=== PATIENT | female | born 1965 | race Caucasian/White ===

== ENCOUNTER 2016-12-12 18:07 | Inpatient (IN) | payer MEDICARE ==
[~2016-12-12] VITALS: Ht 144.8 cm; Wt 111.9 kg
[~2016-12-12 18:07] MED LIST: AMLO10TA2 PO; FURO-93 PO; FURO10VI37 IV; INSU100V8 SQ; ISOS60TA36 PO; METO-93 PO; METO25TA91 PO; PRAV40TA PO
[2016-12-12 19:41] LABS: BLOOD UREA NITROGEN 103 mg/dL (7-18)
[2016-12-12 19:55] LABS: ASPARTATE AMINO TRANSFERASE 12 U/L (15-37)
[2016-12-12 20:20] LABS: DIFF TOTAL CELLS COUNTED 100 CELL DIFF
[2016-12-12 20:24] LABS: VERIFY COUNTS? YES
[2016-12-12 20:26] LABS: HYPOCHROMIA 2+; MICROCYTOSIS 2+
[2016-12-12 20:27] LABS: POLYCHROMASIA 1+
[2016-12-12 20:28] LABS: POIKILOCYTOSIS 1+
[2016-12-12] MEDS ORDERED: CEFTRIAXONE PMX 1GM/50ML 50 ML IV ONE (20:30)
[2016-12-12] MEDS ORDERED: PHARMACOKINETIC CONSULTATION MC ONE (21:00)
[2016-12-12] MEDS ORDERED: ERTAPENEM 1 GM in SODIUM CHLORIDE 0.9% 50 ML IV ONE (21:00)
[2016-12-12] MEDS ORDERED: VANCOMYCIN PER PHARMACY MC ONE (21:00)
[2016-12-12] MEDS ORDERED: VANCOMYCIN 2,200 MG in SODIUM CHLORIDE 0.9% 500 ML IV ONE (21:00)
[2016-12-12] MEDS ORDERED: PHARMACOKINETIC MONITORING MC PRN (21:00)
[2016-12-12] MEDS ORDERED: DOCUSATE 100 MG CAPSULE PO PRN (21:30)
[2016-12-12] MEDS ORDERED: ENALAPRILAT 1.25 MG/ML, 2ML IVPush PRN (21:30)
[2016-12-12] MEDS ORDERED: ONDANSETRON ODT 4 MG PO PRN (21:30)
[2016-12-12] MEDS ORDERED: hydrALAzine 20 MG/ML, 1ML IV PRN (21:30)
[2016-12-12] MEDS ORDERED: HYDROcodone/APAP 5/325 TABLET PO PRN (21:30)
[2016-12-12] MEDS ORDERED: ACETAMINOPHEN 325 MG TABLET PO PRN (21:30)
[2016-12-12] MEDS ORDERED: HEPARIN 5,000 UNITS/ML, 1ML SQ SCH (21:30)
[2016-12-12] MEDS ORDERED: HYDROcodone/APAP 5/325 TABLET ONE (22:05)
[2016-12-12 23:32] VITALS: BP 170/76
[2016-12-13] MEDS: FUROSEMIDE 40 MG/4 ML IV SCH ×3 (00:13→17:00)
[2016-12-13] MEDS ORDERED: DEXTROSE 4 GM TAB.CHEW PO PRN (01:00)
[2016-12-13] MEDS ORDERED: GLUCAGON 1 MG IM PRN (01:00)
[2016-12-13] MEDS: DEXTROSE 50%, 50ML SYRINGE IVPush PRN ×2 (01:30→21:44)
[2016-12-13 01:42] VITALS: BP 188/77
[2016-12-13 05:26] LABS: ASPARTATE AMINO TRANSFERASE 11 U/L (15-37)
[2016-12-13 05:30] LABS: BLOOD UREA NITROGEN 104 mg/dL (7-18)
[2016-12-13] MEDS: INSULIN DETEMIR 100 UNITS/ML, PEN SQ-INSULIN SCH (06:00)
[2016-12-13 06:35] VITALS: BP 180/74
[2016-12-13 06:38] LABS: DIFF TOTAL CELLS COUNTED 100 CELL DIFF
[2016-12-13] MEDS: METOPROLOL SUCCINATE 25 MG TAB.ER.24H PO SCH (06:50)
[2016-12-13] MEDS ORDERED: VANCOMYCIN PER PHARMACY MC PRN (07:00)
[2016-12-13] MEDS: INSULIN ASPART 100 UNITS/ML, PEN SQ-INSULIN SCH ×4 (07:00→21:00)
[2016-12-13 07:10] LABS: ANISOCYTOSIS 1+; HYPOCHROMIA 1+; MICROCYTOSIS 1+; POIKILOCYTOSIS 1+
[2016-12-13 07:11] LABS: ROULEAUX 1+
[2016-12-13 07:19] LABS: VERIFY COUNTS? YES
[2016-12-13] MEDS: SODIUM CHLORIDE FLUSH 10ML SYR IVF SCH ×2 (09:00→21:39)
[2016-12-13] MEDS: SODIUM BICARBONATE 650 MG TABLET PO SCH ×2 (09:58→21:00)
[2016-12-13] MEDS: ISOSORBIDE MONONITRATE ER 60 MG TABLET PO SCH (09:59)
[2016-12-13] MEDS ORDERED: LABETALOL 5MG/ML, 20ML IVPush PRN (11:00)
[2016-12-13 13:00] LABS: HCG UR OBC PASS
[2016-12-13] MEDS ORDERED: MIDAZOLAM 1 MG/ML, 2ML ONE (14:30)
[2016-12-13] MEDS ORDERED: FENTANYL PF 250 MCG/5ML ONE (14:30)
[2016-12-13] MEDS ORDERED: ONDANSETRON 2MG/ML, 2ML ONE (15:06)
[2016-12-13] MEDS ORDERED: FUROSEMIDE 20 MG/2 ML ONE (15:06)
[2016-12-13] MEDS ORDERED: LIDOCAINE 2% 100MG/5ML SYRINGE ONE (15:06)
[2016-12-13] MEDS ORDERED: SUCCINYLCHOLINE 20 MG/ML, 10ML ONE (15:06)
[2016-12-13] MEDS ORDERED: PROPOFOL 10 MG/ML, 50ML ONE (15:06)
[2016-12-13] MEDS ORDERED: ONDANSETRON 2MG/ML, 2ML IVPush PRN (16:00)
[2016-12-13] MEDS ORDERED: MIDAZOLAM 1 MG/ML, 2ML IV PRN (16:00)
[2016-12-13] MEDS ORDERED: HYDROcodone/APAP 7.5-325MG/15ML UDC PO PRN (16:00)
[2016-12-13] MEDS ORDERED: hydrALAzine 20 MG/ML, 1ML IV PRN (16:00)
[2016-12-13] MEDS ORDERED: PROMETHAZINE 25 MG/ML, 1ML IV PRN (16:00)
[2016-12-13] MEDS ORDERED: FENTANYL PF 100 MCG/2ML IV PRN (16:00)
[2016-12-13] MEDS ORDERED: OXYcodone 5 MG/5 ML ORAL.SOL UDC PO PRN (16:00)
[2016-12-13] MEDS ORDERED: MEPERIDINE/PF 25MG/0.5ML IVPush PRN (16:00)
[2016-12-13] MEDS ORDERED: LABETALOL 5MG/ML, 20ML IV PRN (16:00)
[2016-12-13] MEDS ORDERED: EPHEDRINE 50 MG/ML, 1ML IVPush PRN (16:00)
[2016-12-13] MEDS ORDERED: ACETAMINOPHEN 325 MG TABLET PO PRN (16:00)
[2016-12-13] MEDS ORDERED: PHARMACY MAY ADJ FOR RENAL FX MC SCH (18:30)
[2016-12-13] MEDS ORDERED: LIDOCAINE-MPF 1%, 2ML ENDO PRN (18:30)
[2016-12-13] MEDS: HYDROmorphone 1 MG/ML, 1ML IV PRN ×2 (19:33→23:47)
[2016-12-13] MEDS ORDERED: PROPOFOL 100 ML IV ONE (19:33)
[2016-12-13] MEDS: PROPOFOL 100 ML IV PRN ×2 (19:44→23:37)
[2016-12-13] MEDS ORDERED: ERTAPENEM 0.5 GM in SODIUM CHLORIDE 0.9% 50 ML IV SCH (21:00)
[2016-12-13] MEDS: ALBUTEROL SULFATE 2.5 MG/3 ML NPPB SCH (22:14)
[2016-12-14] MEDS: ALBUTEROL SULFATE 2.5 MG/3 ML NPPB SCH ×6 (02:48→20:00)
[2016-12-14] MEDS: INSULIN ASPART 100 UNITS/ML, PEN SQ-INSULIN SCH ×4 (03:00→21:54)
[2016-12-14] MEDS: PROPOFOL 100 ML IV PRN (03:02)
[2016-12-14] MEDS: DEXTROSE 50%, 50ML SYRINGE IVPush PRN (03:08)
[2016-12-14] MEDS: HYDROmorphone 1 MG/ML, 1ML IV PRN ×2 (03:12→09:37)
[2016-12-14 04:36] LABS: ABG COLLECTION SITE RIGHT RADIAL; COLLATERAL CIRCULATION TESTING NORMAL
[2016-12-14 04:48] LABS: ASPARTATE AMINO TRANSFERASE 13 U/L (15-37)
[2016-12-14 04:59] LABS: BLOOD UREA NITROGEN 104 mg/dL (7-18)
[2016-12-14] MEDS: METOPROLOL SUCCINATE 25 MG TAB.ER.24H PO SCH (05:47)
[2016-12-14] MEDS: INSULIN DETEMIR 100 UNITS/ML, PEN SQ-INSULIN SCH (05:48)
[2016-12-14] MEDS: SODIUM BICARBONATE 650 MG TABLET PO SCH ×2 (08:52→21:53)
[2016-12-14] MEDS: SODIUM CHLORIDE FLUSH 10ML SYR IVF SCH ×2 (08:52→21:53)
[2016-12-14] MEDS: ISOSORBIDE MONONITRATE ER 60 MG TABLET PO SCH (08:52)
[2016-12-14] MEDS: FUROSEMIDE 40 MG/4 ML IV SCH ×2 (08:52→17:00)
[2016-12-14] MEDS ORDERED: PHARMACOKINETIC MONITORING MC PRN (11:00)
[2016-12-14 13:10] LABS: HEP B SURF. AB < 3.1 mIU/mL (0.0-10.0)
[2016-12-14] MEDS ORDERED: ACETAMINOPHEN 325 MG TABLET PO PRN (18:00)
[2016-12-14] MEDS ORDERED: ISOSORBIDE MC SCH (18:30)
[2016-12-14] MEDS ORDERED: VANCOMYCIN PER PHARMACY MC PRN (18:30)
[2016-12-14] MEDS ORDERED: METOPROLOL MC SCH (18:30)
[2016-12-14] MEDS ORDERED: HYDROcodone/APAP 5/325 TABLET PO PRN (19:30)
[2016-12-14 19:55] VITALS: BP 158/76
[2016-12-14] MEDS: ALBUTEROL SULFATE 2.5 MG/3 ML NPPB PRN (21:45)
[2016-12-14] MEDS: HYDROcodone/APAP 5/325 TABLET NG PRN ×2 (21:52→22:35)
[2016-12-14] MEDS: ERTAPENEM 0.5 GM in SODIUM CHLORIDE 0.9% 50 ML IV SCH (21:52)
[2016-12-14 23:23] VITALS: BP 91/59
[2016-12-15] MEDS: INSULIN ASPART 100 UNITS/ML, PEN SQ-INSULIN SCH ×4 (03:00→23:32)
[2016-12-15] MEDS: DEXTROSE 50%, 50ML SYRINGE IVPush PRN ×2 (03:55→04:10)
[2016-12-15] MEDS ORDERED: DEXTROSE 4 GM TAB.CHEW PO PRN (04:00)
[2016-12-15] MEDS ORDERED: GLUCAGON 1 MG IM PRN (04:00)
[2016-12-15 04:54] LABS: BLOOD UREA NITROGEN 64 mg/dL (7-18)
[2016-12-15 05:20] LABS: DIFF TOTAL CELLS COUNTED 100 CELL DIFF
[2016-12-15 05:22] LABS: ANISOCYTOSIS 1+; POLYCHROMASIA 1+
[2016-12-15 05:23] LABS: OVALOCYTES 1+; POIKILOCYTOSIS 1+; VERIFY COUNTS? YES
[2016-12-15] MEDS: METOPROLOL SUCCINATE 25 MG TAB.ER.24H PO SCH (06:00)
[2016-12-15 06:12] VITALS: BP 93/74
[2016-12-15] MEDS: INSULIN DETEMIR 100 UNITS/ML, PEN SQ-INSULIN SCH (06:24)
[2016-12-15] MEDS ORDERED: SEVELAMER 800MG TABLET PO PRN (08:30)
[2016-12-15] MEDS: SEVELAMER 2.4 GM POWD.PACK PO SCH ×3 (08:30→18:10)
[2016-12-15] MEDS: SODIUM BICARBONATE 650 MG TABLET PO SCH ×3 (10:46→23:15)
[2016-12-15] MEDS: FUROSEMIDE 40 MG/4 ML IV SCH ×2 (10:46→18:09)
[2016-12-15] MEDS: ISOSORBIDE MONONITRATE ER 60 MG TABLET PO SCH (10:47)
[2016-12-15] MEDS: SODIUM CHLORIDE FLUSH 10ML SYR IVF SCH ×4 (10:49→23:09)
[2016-12-15 12:16] LABS: DIFF TOTAL CELLS COUNTED 100 CELL DIFF
[2016-12-15 12:18] LABS: VERIFY COUNTS? YES
[2016-12-15 12:19] LABS: ANISOCYTOSIS 1+; POLYCHROMASIA 1+
[2016-12-15] MEDS: CHOLECALCIFEROL 1,000 UNIT TABLET PO SCH (14:31)
[2016-12-15 15:15] VITALS: BP 157/76
[2016-12-15] MEDS ORDERED: VANCOMYCIN 2,200 MG in SODIUM CHLORIDE 0.9% 500 ML IV ONE (18:00)
[2016-12-15] MEDS: HYDROcodone/APAP 5/325 TABLET PO PRN (18:09)
[2016-12-15 19:55] VITALS: BP 141/61
[2016-12-15] MEDS: ERTAPENEM 0.5 GM in SODIUM CHLORIDE 0.9% 50 ML IV SCH (23:09)
[2016-12-16] MEDS: HYDROcodone/APAP 5/325 TABLET PO PRN (03:36)
[2016-12-16] MEDS: SODIUM BICARBONATE 650 MG TABLET PO SCH ×3 (03:36→21:36)
[2016-12-16 03:44] VITALS: BP 140/78
[2016-12-16 04:46] LABS: BLOOD UREA NITROGEN 56 mg/dL (7-18)
[2016-12-16 04:49] LABS: ASPARTATE AMINO TRANSFERASE 148 U/L (15-37)
[2016-12-16 06:06] LABS: DIFF TOTAL CELLS COUNTED 100 CELL DIFF
[2016-12-16 06:08] LABS: ANISOCYTOSIS 1+; POLYCHROMASIA 1+; VERIFY COUNTS? YES
[2016-12-16 06:09] LABS: MICROCYTOSIS 1+; OVALOCYTES 1+
[2016-12-16 06:10] LABS: HYPOCHROMIA 1+
[2016-12-16] MEDS: INSULIN DETEMIR 100 UNITS/ML, PEN SQ-INSULIN SCH (07:11)
[2016-12-16] MEDS: INSULIN ASPART 100 UNITS/ML, PEN SQ-INSULIN SCH ×4 (07:12→23:09)
[2016-12-16] MEDS: SEVELAMER 2.4 GM POWD.PACK PO SCH ×3 (08:00→17:00)
[2016-12-16 08:24] VITALS: BP 172/83
[2016-12-16] MEDS: ISOSORBIDE MONONITRATE ER 60 MG TABLET PO SCH (09:00)
[2016-12-16] MEDS: SODIUM CHLORIDE FLUSH 10ML SYR IVF SCH ×4 (09:00→21:36)
[2016-12-16] MEDS: CHOLECALCIFEROL 1,000 UNIT TABLET PO SCH (09:00)
[2016-12-16 09:44] LABS: DIFF TOTAL CELLS COUNTED 100 CELL DIFF
[2016-12-16 09:45] LABS: VERIFY COUNTS? YES
[2016-12-16 09:46] LABS: ANISOCYTOSIS 1+; HYPOCHROMIA 1+; OVALOCYTES 1+; POLYCHROMASIA 1+
[2016-12-16 09:47] LABS: LARGE PLATELETS 1+
[2016-12-16 11:07] VITALS: BP 144/82
[2016-12-16] MEDS: FUROSEMIDE 40 MG/4 ML IV SCH ×2 (11:09→17:00)
[2016-12-16] MEDS ORDERED: FENTANYL PF 250 MCG/5ML ONE (14:42)
[2016-12-16] MEDS ORDERED: METOPROLOL 1 MG/ML, 5ML IV PRN (15:30)
[2016-12-16] MEDS ORDERED: HYDROmorphone 1 MG/ML, 1ML IV PRN (15:30)
[2016-12-16] MEDS ORDERED: ALBUTEROL SULFATE 2.5 MG/3 ML NPPB PRN (15:30)
[2016-12-16] MEDS ORDERED: ONDANSETRON 2MG/ML, 2ML IVPush PRN (15:30)
[2016-12-16] MEDS ORDERED: LABETALOL 5MG/ML, 20ML IV PRN (15:30)
[2016-12-16] MEDS ORDERED: EPHEDRINE 50 MG/ML, 1ML IVPush PRN (15:30)
[2016-12-16] MEDS ORDERED: hydrALAzine 20 MG/ML, 1ML IV PRN (15:30)
[2016-12-16] MEDS ORDERED: OXYcodone 5 MG/5 ML ORAL.SOL UDC PO PRN (15:30)
[2016-12-16] MEDS ORDERED: ACETAMINOPHEN 325 MG TABLET PO PRN (15:30)
[2016-12-16] MEDS ORDERED: ONDANSETRON 2MG/ML, 2ML ONE (15:44)
[2016-12-16] MEDS ORDERED: SUCCINYLCHOLINE 20 MG/ML, 10ML ONE (15:44)
[2016-12-16] MEDS ORDERED: PROPOFOL 10 MG/ML, 20ML ONE (15:44)
[2016-12-16] MEDS ORDERED: OXYcodone 5 MG/5 ML ORAL.SOL UDC ONE (16:54)
[2016-12-16] MEDS ORDERED: FENTANYL PF 100 MCG/2ML ONE (17:00)
[2016-12-16] MEDS: FENTANYL PF 100 MCG/2ML IV PRN ×2 (17:04→17:15)
[2016-12-16] MEDS: ALBUTEROL SULFATE 2.5 MG/3 ML NPPB PRN (17:34)
[2016-12-16] MEDS: METOPROLOL SUCCINATE 25 MG TAB.ER.24H PO SCH (18:24)
[2016-12-16 20:14] VITALS: BP 134/75
[2016-12-16] MEDS: ERTAPENEM 0.5 GM in SODIUM CHLORIDE 0.9% 50 ML IV SCH (21:36)
[2016-12-16 23:35] VITALS: BP 143/84
[2016-12-17 03:15] VITALS: BP 165/81
[2016-12-17 06:13] LABS: ASPARTATE AMINO TRANSFERASE 163 U/L (15-37); BLOOD UREA NITROGEN 50 mg/dL (7-18)
[2016-12-17 06:45] VITALS: BP 127/66
[2016-12-17] MEDS: SODIUM CHLORIDE FLUSH 10ML SYR IVF SCH ×4 (09:00→21:51)
[2016-12-17] MEDS: CHOLECALCIFEROL 1,000 UNIT TABLET PO SCH (09:05)
[2016-12-17] MEDS: METOPROLOL SUCCINATE 25 MG TAB.ER.24H PO SCH (09:06)
[2016-12-17] MEDS: SODIUM BICARBONATE 650 MG TABLET PO SCH ×2 (09:07→21:51)
[2016-12-17] MEDS: INSULIN ASPART 100 UNITS/ML, PEN SQ-INSULIN SCH ×4 (09:07→22:55)
[2016-12-17] MEDS: SEVELAMER 2.4 GM POWD.PACK PO SCH ×3 (09:07→17:02)
[2016-12-17] MEDS: ISOSORBIDE MONONITRATE ER 60 MG TABLET PO SCH (09:07)
[2016-12-17] MEDS: FUROSEMIDE 40 MG/4 ML IV SCH ×2 (09:08→17:01)
[2016-12-17] MEDS: INSULIN DETEMIR 100 UNITS/ML, PEN SQ-INSULIN SCH (12:30)
[2016-12-17 12:34] VITALS: BP 124/81
[2016-12-17] MEDS: HYDROcodone/APAP 5/325 TABLET PO PRN (14:14)
[2016-12-17] MEDS ORDERED: AMPICILLIN 2 GM in SODIUM CHLORIDE 0.9% 100 ML IV SCH (16:30)
[2016-12-17] MEDS: AMPICILLIN/SULBACTAM 3 GM in SODIUM CHLORIDE 0.9% 100 ML IV SCH (17:01)
[2016-12-17 21:05] VITALS: BP 137/76
[2016-12-18 02:06] VITALS: BP 145/82
[2016-12-18 05:37] LABS: BLOOD UREA NITROGEN 66 mg/dL (7-18)
[2016-12-18] MEDS: AMPICILLIN/SULBACTAM 3 GM in SODIUM CHLORIDE 0.9% 100 ML IV SCH ×3 (05:45→17:14)
[2016-12-18 05:59] VITALS: BP 135/94
[2016-12-18 05:59] LABS: DIFF TOTAL CELLS COUNTED 100 CELL DIFF
[2016-12-18 06:01] LABS: ANISOCYTOSIS 1+; VERIFY COUNTS? YES
[2016-12-18 06:02] LABS: POIKILOCYTOSIS 1+; POLYCHROMASIA 1+
[2016-12-18 06:03] LABS: STOMATOCYTES 1+
[2016-12-18] MEDS: METOPROLOL SUCCINATE 25 MG TAB.ER.24H PO SCH (06:03)
[2016-12-18 06:04] LABS: LARGE PLATELETS 1+
[2016-12-18] MEDS: HYDROcodone/APAP 5/325 TABLET PO PRN (06:04)
[2016-12-18 07:40] VITALS: BP 133/78
[2016-12-18] MEDS: SEVELAMER 2.4 GM POWD.PACK PO SCH ×3 (08:00→16:31)
[2016-12-18] MEDS: SODIUM BICARBONATE 650 MG TABLET PO SCH ×2 (08:44→21:23)
[2016-12-18] MEDS: INSULIN ASPART 100 UNITS/ML, PEN SQ-INSULIN SCH ×4 (08:44→21:00)
[2016-12-18] MEDS: CHOLECALCIFEROL 1,000 UNIT TABLET PO SCH (08:44)
[2016-12-18] MEDS: ISOSORBIDE MONONITRATE ER 60 MG TABLET PO SCH (08:45)
[2016-12-18] MEDS: FUROSEMIDE 40 MG/4 ML IV SCH ×2 (08:45→16:41)
[2016-12-18] MEDS: SODIUM CHLORIDE FLUSH 10ML SYR IVF SCH ×4 (08:47→21:23)
[2016-12-18] MEDS: CINACALCET 30 MG TABLET PO SCH (10:00)
[2016-12-18] MEDS ORDERED: ROCURONIUM 10 MG/ML ONE (11:20)
[2016-12-18] MEDS ORDERED: PROPOFOL 10 MG/ML, 20ML ONE (11:20)
[2016-12-18] MEDS ORDERED: PHENYLEPHRINE 10 MG/ML ONE (11:20)
[2016-12-18] MEDS ORDERED: hydrALAzine 20 MG/ML, 1ML IV PRN (12:30)
[2016-12-18] MEDS ORDERED: HYDROmorphone 1 MG/ML, 1ML IV PRN (12:30)
[2016-12-18] MEDS ORDERED: ONDANSETRON 2MG/ML, 2ML IVPush PRN (12:30)
[2016-12-18] MEDS ORDERED: OXYcodone 5 MG/5 ML ORAL.SOL UDC PO PRN (12:30)
[2016-12-18] MEDS ORDERED: LABETALOL 5MG/ML, 20ML IV PRN (12:30)
[2016-12-18] MEDS ORDERED: MEPERIDINE/PF 25MG/0.5ML IVPush PRN (12:30)
[2016-12-18] MEDS ORDERED: FENTANYL PF 100 MCG/2ML ONE (12:33)
[2016-12-18] MEDS: FENTANYL PF 100 MCG/2ML IV PRN ×2 (12:35→12:57)
[2016-12-18] MEDS ORDERED: OXYcodone 5 MG/5 ML ORAL.SOL UDC ONE (12:46)
[2016-12-18 13:45] VITALS: BP 132/85
[2016-12-18 13:50] VITALS: BP 124/83
[2016-12-18 20:39] VITALS: BP 151/94
[2016-12-18] MEDS ORDERED: AMPICILLIN 2 GM in SODIUM CHLORIDE 0.9% 100 ML IV ONE (22:00)
[2016-12-19 01:38] VITALS: BP 164/72
[2016-12-19] MEDS: AMPICILLIN/SULBACTAM 3 GM in SODIUM CHLORIDE 0.9% 100 ML IV SCH ×2 (04:46→16:13)
[2016-12-19] MEDS: METOPROLOL SUCCINATE 25 MG TAB.ER.24H PO SCH (06:53)
[2016-12-19 07:47] LABS: ASPARTATE AMINO TRANSFERASE 22 U/L (15-37); BLOOD UREA NITROGEN 52 mg/dL (7-18)
[2016-12-19 08:05] VITALS: BP 131/59
[2016-12-19] MEDS: INSULIN ASPART 100 UNITS/ML, PEN SQ-INSULIN SCH ×4 (08:07→21:41)
[2016-12-19] MEDS ORDERED: SODIUM CHLORIDE 0.9%, 500ML IVBOLUS ONE (08:30)
[2016-12-19 08:37] LABS: DIFF TOTAL CELLS COUNTED 100 CELL DIFF
[2016-12-19 08:39] LABS: VERIFY COUNTS? YES
[2016-12-19 08:40] LABS: ANISOCYTOSIS 2+
[2016-12-19 08:41] LABS: HYPOCHROMIA 2+; POLYCHROMASIA 1+
[2016-12-19] MEDS: SODIUM CHLORIDE FLUSH 10ML SYR IVF SCH ×4 (09:23→21:00)
[2016-12-19] MEDS: FUROSEMIDE 40 MG/4 ML IV SCH ×2 (09:32→16:13)
[2016-12-19] MEDS: SEVELAMER 2.4 GM POWD.PACK PO SCH ×3 (09:47→16:13)
[2016-12-19] MEDS: SODIUM BICARBONATE 650 MG TABLET PO SCH ×2 (09:49→21:30)
[2016-12-19] MEDS: CINACALCET 30 MG TABLET PO SCH (09:50)
[2016-12-19] MEDS: CHOLECALCIFEROL 1,000 UNIT TABLET PO SCH (09:50)
[2016-12-19] MEDS: ISOSORBIDE MONONITRATE ER 60 MG TABLET PO SCH (09:51)
[2016-12-19 13:24] VITALS: BP 123/62
[2016-12-19] MEDS: HYDROcodone/APAP 5/325 TABLET PO PRN (15:34)
[2016-12-19] MEDS ORDERED: LACTULOSE 20 GM/30 ML UDC PO PRN (18:30)
[2016-12-19] MEDS ORDERED: POLYETHYLENE GLYCOL 17 GM PACKET PO PRN (18:30)
[2016-12-19] MEDS ORDERED: MAGNESIUM CITRATE 300ML ORAL SOL PO PRN ×2 (18:30)
[2016-12-19] MEDS ORDERED: BISACODYL 10 MG SUPP PR PRN ×2 (18:30)
[2016-12-19 19:40] VITALS: BP 137/38
[2016-12-19] MEDS: SENNA/DOCUSATE TABLET PO SCH (21:30)
[2016-12-20 01:18] VITALS: BP 140/86
[2016-12-20] MEDS: AMPICILLIN/SULBACTAM 3 GM in SODIUM CHLORIDE 0.9% 100 ML IV SCH (04:19)
[2016-12-20 06:40] LABS: BLOOD UREA NITROGEN 68 mg/dL (7-18)
[2016-12-20] MEDS: METOPROLOL SUCCINATE 25 MG TAB.ER.24H PO SCH (06:47)
[2016-12-20 07:00] VITALS: BP 152/62
[2016-12-20 07:23] LABS: DIFF TOTAL CELLS COUNTED 100 CELL DIFF
[2016-12-20 07:25] LABS: ANISOCYTOSIS 1+; HYPOCHROMIA 1+; POIKILOCYTOSIS 1+; VERIFY COUNTS? YES
[2016-12-20] MEDS: INSULIN ASPART 100 UNITS/ML, PEN SQ-INSULIN SCH ×4 (07:58→21:35)
[2016-12-20] MEDS: INSULIN DETEMIR 100 UNITS/ML, PEN SQ-INSULIN SCH (07:58)
[2016-12-20] MEDS: CINACALCET 30 MG TABLET PO SCH (09:13)
[2016-12-20] MEDS: SEVELAMER 2.4 GM POWD.PACK PO SCH ×3 (09:13→17:38)
[2016-12-20] MEDS: ISOSORBIDE MONONITRATE ER 60 MG TABLET PO SCH (09:13)
[2016-12-20] MEDS: SODIUM BICARBONATE 650 MG TABLET PO SCH ×2 (09:13→21:37)
[2016-12-20] MEDS: DOCUSATE 100 MG CAPSULE PO SCH (09:13)
[2016-12-20] MEDS: SODIUM CHLORIDE FLUSH 10ML SYR IVF SCH ×4 (09:13→21:37)
[2016-12-20] MEDS: CHOLECALCIFEROL 1,000 UNIT TABLET PO SCH (09:13)
[2016-12-20] MEDS ORDERED: morphine SULFATE 10 MG/ML, 1ML IVPush ONE (09:30)
[2016-12-20] MEDS: FUROSEMIDE 40 MG/4 ML IV SCH ×2 (09:34→17:38)
[2016-12-20] MEDS: HYDROcodone/APAP 5/325 TABLET PO PRN ×2 (09:35→14:59)
[2016-12-20] MEDS: MORPHINE SULFATE 4 MG/ML, 1ML IVPush PRN (09:35)
[2016-12-20 14:11] VITALS: BP 187/90
[2016-12-20] MEDS: HEPARIN 5,000 UNITS/ML, 1ML SQ SCH (14:59)
[2016-12-20] MEDS ORDERED: LIDOCAINE 1%, 20ML ONE (14:59)
[2016-12-20] MEDS ORDERED: MIDAZOLAM 1 MG/ML, 5ML ONE (15:02)
[2016-12-20] MEDS ORDERED: NALOXONE 1 MG/ML, 2ML ONE (15:02)
[2016-12-20] MEDS ORDERED: FENTANYL PF 100 MCG/2ML ONE (15:02)
[2016-12-20] MEDS ORDERED: FLUMAZENIL 0.1 MG/1 ML, 5ML ONE (15:03)
[2016-12-20 15:06] VITALS: BP 139/66
[2016-12-20] MEDS: AMPICILLIN 2 GM in SODIUM CHLORIDE 0.9% 100 ML IV SCH (17:04)
[2016-12-20] MEDS ORDERED: SODIUM CHLORIDE FLUSH 10ML SYR IVF PRN (18:00)
[2016-12-20 20:00] VITALS: BP 139/74
[2016-12-20] MEDS: SENNA/DOCUSATE TABLET PO SCH (21:37)
[2016-12-21 02:50] VITALS: BP 158/93
[2016-12-21] MEDS: HEPARIN 5,000 UNITS/ML, 1ML SQ SCH ×2 (03:00→14:17)
[2016-12-21] MEDS: METOPROLOL SUCCINATE 25 MG TAB.ER.24H PO SCH (06:13)
[2016-12-21 06:52] LABS: ASPARTATE AMINO TRANSFERASE 14 U/L (15-37); BLOOD UREA NITROGEN 78 mg/dL (7-18)
[2016-12-21] MEDS: INSULIN ASPART 100 UNITS/ML, PEN SQ-INSULIN SCH ×4 (07:32→21:52)
[2016-12-21] MEDS: INSULIN DETEMIR 100 UNITS/ML, PEN SQ-INSULIN SCH (07:33)
[2016-12-21 07:59] LABS: DIFF TOTAL CELLS COUNTED 100 CELL DIFF
[2016-12-21 08:01] LABS: VERIFY COUNTS? YES
[2016-12-21 08:02] LABS: ANISOCYTOSIS 1+; LARGE PLATELETS 1+; POIKILOCYTOSIS 1+; POLYCHROMASIA 1+
[2016-12-21] MEDS: SODIUM CHLORIDE FLUSH 10ML SYR IVF SCH ×4 (08:23→21:45)
[2016-12-21 08:27] VITALS: BP 168/72
[2016-12-21] MEDS: SEVELAMER 2.4 GM POWD.PACK PO SCH ×3 (09:43→17:57)
[2016-12-21] MEDS: FUROSEMIDE 40 MG/4 ML IV SCH ×2 (09:43→17:57)
[2016-12-21] MEDS: SODIUM BICARBONATE 650 MG TABLET PO SCH (09:44)
[2016-12-21] MEDS: CINACALCET 30 MG TABLET PO SCH (09:44)
[2016-12-21] MEDS: ISOSORBIDE MONONITRATE ER 60 MG TABLET PO SCH (09:44)
[2016-12-21] MEDS: CHOLECALCIFEROL 1,000 UNIT TABLET PO SCH (09:45)
[2016-12-21] MEDS: DOCUSATE 100 MG CAPSULE PO SCH (09:45)
[2016-12-21] MEDS: AMPICILLIN/SULBACTAM 3 GM in SODIUM CHLORIDE 0.9% 100 ML IV SCH (09:45)
[2016-12-21 14:12] VITALS: BP 156/67
[2016-12-21] MEDS: HYDROcodone/APAP 5/325 TABLET PO PRN ×2 (14:17→21:46)
[2016-12-21 20:26] VITALS: BP 179/81
[2016-12-21] MEDS ORDERED: AMPICILLIN 2 GM in SODIUM CHLORIDE 0.9% 100 ML IV ONE (22:00)
[2016-12-22 02:01] VITALS: BP 178/83
[2016-12-22] MEDS: HEPARIN 5,000 UNITS/ML, 1ML SQ SCH ×2 (02:49→15:28)
[2016-12-22] MEDS: METOPROLOL SUCCINATE 25 MG TAB.ER.24H PO SCH (06:13)
[2016-12-22] MEDS: INSULIN DETEMIR 100 UNITS/ML, PEN SQ-INSULIN SCH (06:14)
[2016-12-22] MEDS: INSULIN ASPART 100 UNITS/ML, PEN SQ-INSULIN SCH ×4 (06:14→20:54)
[2016-12-22 08:47] LABS: ASPARTATE AMINO TRANSFERASE 9 U/L (15-37); BLOOD UREA NITROGEN 58 mg/dL (7-18)
[2016-12-22 08:56] VITALS: BP 137/63
[2016-12-22 09:13] LABS: DIFF TOTAL CELLS COUNTED 100 CELL DIFF
[2016-12-22 09:14] LABS: ANISOCYTOSIS 1+
[2016-12-22 09:15] LABS: POLYCHROMASIA 1+
[2016-12-22 09:16] LABS: VERIFY COUNTS? YES
[2016-12-22] MEDS: SEVELAMER 2.4 GM POWD.PACK PO SCH ×3 (10:53→18:14)
[2016-12-22] MEDS: SODIUM CHLORIDE FLUSH 10ML SYR IVF SCH ×4 (10:53→20:49)
[2016-12-22] MEDS: FUROSEMIDE 40 MG/4 ML IV SCH ×2 (10:59→18:14)
[2016-12-22] MEDS: AMPICILLIN/SULBACTAM 3 GM in SODIUM CHLORIDE 0.9% 100 ML IV SCH (10:59)
[2016-12-22] MEDS ORDERED: POLYETHYLENE GLYCOL 17 GM PACKET PO PRN (11:00)
[2016-12-22] MEDS: DOCUSATE 100 MG CAPSULE PO SCH (11:00)
[2016-12-22] MEDS: ISOSORBIDE MONONITRATE ER 60 MG TABLET PO SCH (11:00)
[2016-12-22] MEDS: LISINOPRIL 5 MG TABLET PO SCH (11:00)
[2016-12-22] MEDS: CINACALCET 30 MG TABLET PO SCH (11:01)
[2016-12-22] MEDS: CHOLECALCIFEROL 1,000 UNIT TABLET PO SCH (11:01)
[2016-12-22 14:24] VITALS: BP 144/74
[2016-12-22] MEDS: HYDROcodone/APAP 5/325 TABLET PO PRN (18:22)
[2016-12-22 20:00] VITALS: BP 156/75
[2016-12-23 00:59] VITALS: BP 167/81
[2016-12-23] MEDS: HEPARIN 5,000 UNITS/ML, 1ML SQ SCH ×2 (02:04→14:27)
[2016-12-23] MEDS: METOPROLOL SUCCINATE 25 MG TAB.ER.24H PO SCH (05:45)
[2016-12-23] MEDS: INSULIN DETEMIR 100 UNITS/ML, PEN SQ-INSULIN SCH (05:52)
[2016-12-23 06:15] LABS: BLOOD UREA NITROGEN 69 mg/dL (7-18)
[2016-12-23 06:25] LABS: ASPARTATE AMINO TRANSFERASE 11 U/L (15-37)
[2016-12-23] MEDS: INSULIN ASPART 100 UNITS/ML, PEN SQ-INSULIN SCH ×4 (07:00→21:51)
[2016-12-23] MEDS: SEVELAMER 2.4 GM POWD.PACK PO SCH ×3 (08:00→17:55)
[2016-12-23 08:45] VITALS: BP 172/73
[2016-12-23] MEDS: DOCUSATE 100 MG CAPSULE PO SCH ×2 (09:00→10:31)
[2016-12-23] MEDS: SODIUM CHLORIDE FLUSH 10ML SYR IVF SCH ×4 (09:00→21:00)
[2016-12-23] MEDS: CHOLECALCIFEROL 1,000 UNIT TABLET PO SCH (10:31)
[2016-12-23] MEDS: AMPICILLIN/SULBACTAM 3 GM in SODIUM CHLORIDE 0.9% 100 ML IV SCH (10:31)
[2016-12-23] MEDS: FUROSEMIDE 40 MG/4 ML IV SCH ×2 (10:31→17:55)
[2016-12-23] MEDS: CINACALCET 30 MG TABLET PO SCH (10:32)
[2016-12-23] MEDS: ISOSORBIDE MONONITRATE ER 60 MG TABLET PO SCH (10:32)
[2016-12-23] MEDS: LISINOPRIL 5 MG TABLET PO SCH (10:32)
[2016-12-23] MEDS: MORPHINE SULFATE 4 MG/ML, 1ML IVPush PRN (10:53)
[2016-12-23] MEDS: HYDROcodone/APAP 5/325 TABLET PO PRN (11:59)
[2016-12-23 14:34] VITALS: BP 172/87
[2016-12-23] MEDS: AMPICILLIN 2 GM in SODIUM CHLORIDE 0.9% 100 ML IV SCH (17:55)
[2016-12-23 18:55] VITALS: BP 150/80
[2016-12-24 04:35] LABS: BLOOD UREA NITROGEN 46 mg/dL (7-18)
[2016-12-24 04:38] LABS: ASPARTATE AMINO TRANSFERASE 12 U/L (15-37)
[2016-12-24 05:20] VITALS: BP 188/71
[2016-12-24] MEDS: HEPARIN 5,000 UNITS/ML, 1ML SQ SCH ×2 (06:03→17:39)
[2016-12-24] MEDS: MORPHINE SULFATE 4 MG/ML, 1ML IVPush PRN ×2 (06:04→11:21)
[2016-12-24] MEDS: INSULIN DETEMIR 100 UNITS/ML, PEN SQ-INSULIN SCH (06:06)
[2016-12-24] MEDS: METOPROLOL SUCCINATE 25 MG TAB.ER.24H PO SCH (06:06)
[2016-12-24 06:48] VITALS: BP 180/82
[2016-12-24] MEDS: INSULIN ASPART 100 UNITS/ML, PEN SQ-INSULIN SCH ×4 (07:00→21:00)
[2016-12-24] MEDS: SEVELAMER 2.4 GM POWD.PACK PO SCH ×3 (08:00→17:00)
[2016-12-24] MEDS ORDERED: LISINOPRIL 10 MG TABLET PO SCH (09:00)
[2016-12-24] MEDS: CINACALCET 30 MG TABLET PO SCH (09:15)
[2016-12-24] MEDS: DOCUSATE 100 MG CAPSULE PO SCH (09:15)
[2016-12-24] MEDS: CHOLECALCIFEROL 1,000 UNIT TABLET PO SCH (09:15)
[2016-12-24] MEDS: FUROSEMIDE 40 MG/4 ML IV SCH ×2 (09:15→17:38)
[2016-12-24] MEDS: LISINOPRIL 10 MG TABLET PO SCH ×2 (09:15→23:00)
[2016-12-24] MEDS: SODIUM CHLORIDE FLUSH 10ML SYR IVF SCH ×4 (09:15→23:01)
[2016-12-24] MEDS: ISOSORBIDE MONONITRATE ER 60 MG TABLET PO SCH (09:15)
[2016-12-24] MEDS: AMPICILLIN/SULBACTAM 3 GM in SODIUM CHLORIDE 0.9% 100 ML IV SCH (09:15)
[2016-12-24] MEDS ORDERED: ARANESP 100 MCG/ML **ESRD SQ SCH (15:00)
[2016-12-24 17:46] VITALS: BP 168/68
[2016-12-24 20:00] VITALS: BP 132/78
[2016-12-24] MEDS ORDERED: AMPICILLIN 2 GM in SODIUM CHLORIDE 0.9% 100 ML IV ONE (22:00)
[2016-12-24] MEDS: HYDROcodone/APAP 5/325 TABLET PO PRN (22:58)
[2016-12-24 23:14] VITALS: BP 123/65
[2016-12-25 01:33] VITALS: BP 196/75
[2016-12-25] MEDS ORDERED: hydrALAzine 20 MG/ML, 1ML IV PRN (03:00)
[2016-12-25 04:29] LABS: ASPARTATE AMINO TRANSFERASE 14 U/L (15-37); BLOOD UREA NITROGEN 33 mg/dL (7-18)
[2016-12-25 05:11] VITALS: BP 130/56
[2016-12-25] MEDS: HEPARIN 5,000 UNITS/ML, 1ML SQ SCH ×2 (06:18→18:06)
[2016-12-25] MEDS: METOPROLOL SUCCINATE 25 MG TAB.ER.24H PO SCH (06:19)
[2016-12-25] MEDS: HYDROcodone/APAP 5/325 TABLET PO PRN ×2 (06:19→14:37)
[2016-12-25] MEDS: INSULIN DETEMIR 100 UNITS/ML, PEN SQ-INSULIN SCH (06:24)
[2016-12-25 08:51] VITALS: BP 143/73
[2016-12-25] MEDS: LISINOPRIL 20 MG TABLET PO SCH ×2 (08:52→20:23)
[2016-12-25] MEDS: SEVELAMER 2.4 GM POWD.PACK PO SCH ×3 (08:52→18:06)
[2016-12-25] MEDS: ISOSORBIDE MONONITRATE ER 60 MG TABLET PO SCH (08:52)
[2016-12-25] MEDS: CHOLECALCIFEROL 1,000 UNIT TABLET PO SCH (08:52)
[2016-12-25] MEDS: FUROSEMIDE 40 MG/4 ML IV SCH ×2 (08:52→18:06)
[2016-12-25] MEDS: CINACALCET 30 MG TABLET PO SCH (08:53)
[2016-12-25] MEDS: DOCUSATE 100 MG CAPSULE PO SCH (08:53)
[2016-12-25] MEDS: INSULIN ASPART 100 UNITS/ML, PEN SQ-INSULIN SCH ×4 (08:53→20:22)
[2016-12-25] MEDS: SODIUM CHLORIDE FLUSH 10ML SYR IVF SCH (08:53)
[2016-12-25] MEDS: AMPICILLIN/SULBACTAM 3 GM in SODIUM CHLORIDE 0.9% 100 ML IV SCH (09:03)
[2016-12-25 10:20] VITALS: BP 143/76
[2016-12-25] MEDS: MORPHINE SULFATE 4 MG/ML, 1ML IVPush PRN (13:00)
[2016-12-25 13:21] VITALS: BP 130/55
[2016-12-25 19:38] VITALS: BP 156/80
[2016-12-25] MEDS: CHOLESTYRAMINE 4GM PACKET PO SCH (21:38)
[2016-12-26 00:18] VITALS: BP 151/77
[2016-12-26] MEDS: METOPROLOL SUCCINATE 25 MG TAB.ER.24H PO SCH (05:50)
[2016-12-26] MEDS: HEPARIN 5,000 UNITS/ML, 1ML SQ SCH ×2 (05:59→18:13)
[2016-12-26] MEDS: INSULIN DETEMIR 100 UNITS/ML, PEN SQ-INSULIN SCH (06:00)
[2016-12-26 06:21] LABS: BLOOD UREA NITROGEN 49 mg/dL (7-18)
[2016-12-26 06:26] LABS: ASPARTATE AMINO TRANSFERASE 8 U/L (15-37)
[2016-12-26 06:57] VITALS: BP 157/72
[2016-12-26 07:00] LABS: DIFF TOTAL CELLS COUNTED 100 CELL DIFF
[2016-12-26] MEDS: INSULIN ASPART 100 UNITS/ML, PEN SQ-INSULIN SCH ×4 (07:00→21:54)
[2016-12-26] MEDS ORDERED: PROTAMINE SULFATE 10 MG/ML, 5ML ONE (07:15)
[2016-12-26] MEDS ORDERED: BUPIVACAINE/PF 0.5% ONE (07:15)
[2016-12-26] MEDS ORDERED: HEPARIN 1,000 UNITS/ML, 10ML ONE (07:15)
[2016-12-26 07:21] LABS: VERIFY COUNTS? YES
[2016-12-26 07:22] LABS: ANISOCYTOSIS 1+; HYPOCHROMIA 1+; MICROCYTOSIS 1+
[2016-12-26] MEDS: FUROSEMIDE 40 MG/4 ML IV SCH ×2 (07:30→18:13)
[2016-12-26] MEDS: SEVELAMER 2.4 GM POWD.PACK PO SCH ×3 (08:00→17:00)
[2016-12-26] MEDS: DOCUSATE 100 MG CAPSULE PO SCH (08:50)
[2016-12-26] MEDS: CHOLECALCIFEROL 1,000 UNIT TABLET PO SCH (08:51)
[2016-12-26] MEDS: ISOSORBIDE MONONITRATE ER 60 MG TABLET PO SCH (08:51)
[2016-12-26] MEDS: CHOLESTYRAMINE 4GM PACKET PO SCH ×3 (08:51→21:00)
[2016-12-26] MEDS: CINACALCET 30 MG TABLET PO SCH (08:51)
[2016-12-26] MEDS: LISINOPRIL 20 MG TABLET PO SCH ×2 (08:51→21:35)
[2016-12-26] MEDS: AMPICILLIN/SULBACTAM 3 GM in SODIUM CHLORIDE 0.9% 100 ML IV SCH (09:21)
[2016-12-26] MEDS: HYDROcodone/APAP 5/325 TABLET PO PRN ×3 (11:53→22:14)
[2016-12-26 12:30] VITALS: BP 146/61
[2016-12-26] MEDS ORDERED: AMPICILLIN 2 GM in SODIUM CHLORIDE 0.9% 100 ML IV SCH (18:00)
[2016-12-26 19:47] VITALS: BP 123/60
[2016-12-27 03:33] VITALS: BP 153/74
[2016-12-27] MEDS: HYDROcodone/APAP 5/325 TABLET PO PRN ×2 (04:00→10:13)
[2016-12-27 04:27] LABS: ASPARTATE AMINO TRANSFERASE 10 U/L (15-37); BLOOD UREA NITROGEN 39 mg/dL (7-18)
[2016-12-27] MEDS: METOPROLOL SUCCINATE 25 MG TAB.ER.24H PO SCH (06:31)
[2016-12-27] MEDS: HEPARIN 5,000 UNITS/ML, 1ML SQ SCH (06:32)
[2016-12-27] MEDS: INSULIN DETEMIR 100 UNITS/ML, PEN SQ-INSULIN SCH (06:33)
[2016-12-27] MEDS: INSULIN ASPART 100 UNITS/ML, PEN SQ-INSULIN SCH (07:00)
[2016-12-27 08:18] VITALS: BP 151/54
[2016-12-27] MEDS: CHOLESTYRAMINE 4GM PACKET PO SCH (09:00)
[2016-12-27] MEDS: DOCUSATE 100 MG CAPSULE PO SCH (09:00)
[2016-12-27] MEDS: FUROSEMIDE 40 MG/4 ML IV SCH (09:32)
[2016-12-27] MEDS: CINACALCET 30 MG TABLET PO SCH (09:33)
[2016-12-27] MEDS: LISINOPRIL 20 MG TABLET PO SCH (09:33)
[2016-12-27] MEDS: SEVELAMER 2.4 GM POWD.PACK PO SCH (09:33)
[2016-12-27] MEDS: ISOSORBIDE MONONITRATE ER 60 MG TABLET PO SCH (09:33)
[2016-12-27] MEDS: AMPICILLIN/SULBACTAM 3 GM in SODIUM CHLORIDE 0.9% 100 ML IV SCH (09:34)
[2016-12-27] MEDS: CHOLECALCIFEROL 1,000 UNIT TABLET PO SCH (09:34)
[2016-12-27] MEDS ORDERED: METO25TA91 PO (11:31)
[2016-12-27] MEDS ORDERED: ACET325T14 PO (11:31)
[2016-12-27] MEDS ORDERED: Darbepoetin Alfa In Polysorbat SQ (11:31)
[2016-12-27] MEDS ORDERED: SEVE800T PO (11:31)
[2016-12-27] MEDS ORDERED: ISOS60TA36 PO (11:31)
[2016-12-27] MEDS ORDERED: CHOL10003 PO (11:31)
[2016-12-27] MEDS ORDERED: HYDR-3240 PO (11:31)
[2016-12-27] MEDS ORDERED: CINA30TA PO (11:31)
[2016-12-27] MEDS ORDERED: INSU100I18 SQ-INSULIN (11:31)
[2016-12-27] MEDS ORDERED: FURO10VI37 IV (11:31)
[2016-12-27] MEDS ORDERED: BISA10SU65 PR (11:31)
[2016-12-27] MEDS ORDERED: CHOL4PAC2 PO (11:31)
[2016-12-27] MEDS ORDERED: Lactulose PO (11:31)
[2016-12-27] MEDS ORDERED: SEVE2.4P PO (11:31)
[2016-12-27] MEDS ORDERED: INSU100I28 SQ-INSULIN (11:31)
== END 2016-12-27 12:10 | DRG 853 ==
LOC: ED 21:10 → EDIP 21:11 → ED 21:17 → 4NOR 23:10 → CCU 12-13 16:55 → 4NOR 12-14 18:48 → 4WST 12-24 17:58
PROVIDERS: ADMIT Family Medicine; ATTEND Family Medicine
PROC: 5A1935Z Respiratory Ventilation, Less than 24 Consecutive Hours (ICD-10-PCS; 2016-12-13)
PROC: 0BH17EZ Insertion of Endotracheal Airway into Trachea, Via Natural or Artificial Opening (ICD-10-PCS; 2016-12-13)
PROC: 0T9B70Z Drainage of Bladder with Drainage Device, Via Natural or Artificial Opening (ICD-10-PCS; 2016-12-13)
PROC: 30233N1 Transfusion of Nonautologous Red Blood Cells into Peripheral Vein, Percutaneous Approach (ICD-10-PCS; 2016-12-13)
PROC: 0JB80ZZ Excision of Abdomen Subcutaneous Tissue and Fascia, Open Approach (ICD-10-PCS; principal; 2016-12-13 14:00)
PROC: B543ZZA Ultrasonography of Right Jugular Veins, Guidance (ICD-10-PCS; 2016-12-14)
PROC: 02HV33Z Insertion of Infusion Device into Superior Vena Cava, Percutaneous Approach (ICD-10-PCS; 2016-12-14)
PROC: 5A1D60Z (ICD-10-PCS; 2016-12-14)
PROC: 0JB80ZZ Excision of Abdomen Subcutaneous Tissue and Fascia, Open Approach (ICD-10-PCS; 2016-12-16)
PROC: 0JBQ0ZZ Excision of Right Foot Subcutaneous Tissue and Fascia, Open Approach (ICD-10-PCS; 2016-12-16)
PROC: 0JB80ZZ Excision of Abdomen Subcutaneous Tissue and Fascia, Open Approach (ICD-10-PCS; 2016-12-18)
PROC: 02HV33Z Insertion of Infusion Device into Superior Vena Cava, Percutaneous Approach (ICD-10-PCS; 2016-12-20)
PROC: B548ZZA Ultrasonography of Superior Vena Cava, Guidance (ICD-10-PCS; 2016-12-20)
PROC: 0JH63XZ Insertion of Tunneled Vascular Access Device into Chest Subcutaneous Tissue and Fascia, Percutaneous Approach (ICD-10-PCS; 2016-12-20)
PROC: B5131ZA Fluoroscopy of Right Jugular Veins using Low Osmolar Contrast, Guidance (ICD-10-PCS; 2016-12-20)
PROC: B543ZZA Ultrasonography of Right Jugular Veins, Guidance (ICD-10-PCS; 2016-12-20)
PROC: 02HV33Z Insertion of Infusion Device into Superior Vena Cava, Percutaneous Approach (ICD-10-PCS; 2016-12-20)
DX: A41.9 Sepsis, unspecified organism (principal); J96.20 Acute and chronic respiratory failure, unspecified whether with hypoxia or hypercapnia; N18.6 End stage renal disease; N17.9 Acute kidney failure, unspecified; E87.2 Acidosis; L03.311 Cellulitis of abdominal wall; Z68.43 Body mass index [BMI] 50.0-59.9, adult; E66.2 Morbid (severe) obesity with alveolar hypoventilation; I13.2 Hypertensive heart and chronic kidney disease with heart failure and with stage 5 chronic kidney disease, or end stage renal disease; N04.9 Nephrotic syndrome with unspecified morphologic changes; E46 Unspecified protein-calorie malnutrition; Z99.81 Dependence on supplemental oxygen; R65.20 Severe sepsis without septic shock; D63.1 Anemia in chronic kidney disease; E11.22 Type 2 diabetes mellitus with diabetic chronic kidney disease; E11.621 Type 2 diabetes mellitus with foot ulcer; E11.65 Type 2 diabetes mellitus with hyperglycemia; E78.5 Hyperlipidemia, unspecified; E83.59 Other disorders of calcium metabolism; I27.2 Other secondary pulmonary hypertension; I50.9 Heart failure, unspecified; J44.9 Chronic obstructive pulmonary disease, unspecified; J45.909 Unspecified asthma, uncomplicated; K42.9 Umbilical hernia without obstruction or gangrene; K43.9 Ventral hernia without obstruction or gangrene; B95.2 Enterococcus as the cause of diseases classified elsewhere; B96.89 Other specified bacterial agents as the cause of diseases classified elsewhere; B96.4 Proteus (mirabilis) (morganii) as the cause of diseases classified elsewhere; M79.3 Panniculitis, unspecified; K59.00 Constipation, unspecified; L97.519 Non-pressure chronic ulcer of other part of right foot with unspecified severity; Z79.4 Long term (current) use of insulin; Z82.49 Family history of ischemic heart disease and other diseases of the circulatory system; Z83.3 Family history of diabetes mellitus; Z86.14 Personal history of Methicillin resistant Staphylococcus aureus infection; Z91.19 Patient's noncompliance with other medical treatment and regimen; Z99.2 Dependence on renal dialysis
CPT/HCPCS: 36415; 36556; 36558; 36569; 36600; 71010; 74176; 76770; 76937; 77001; 80048; 80053; 80069; 80202; 81001; 81025; 82306; 82570; 82803; 82962; 83605; 83735; 83880; 83935; 83970; 84100; 84145; 84156; 84436; 84443; 84478; 85025; 85610; 85651; 85730; 86140; 86480; 86704; 86706; 86850; 86900; 86923; 87040; 87070; 87075; 87077; 87081; 87086; 87176; 87186; 87205; 87324; 87340; 93005; 94002; 94003; 94150; 94640; 96374; J0290; J0295; J0882; J1170; J1335; J1644; J1815; J1940; J2250; J2405; J2704; J2720; J3010; J3370; J3490; J7613; C1750; C1751; G0365; J0330; J0360; J1610; J1642; J2310; J2370; J7040; P9016